=== PATIENT | male | born 2000 | race Caucasian/White ===

== ENCOUNTER 2022-07-24 11:58 | Emergency (ER) | payer OTHER, SELFPAY ==
[2022-07-24 12:10] VITALS: BP 135/74; PULSE 84; RESP 16; TEMP 36.9; O2SAT 100
[2022-07-24 12:17] VITALS: BP 135/74; PULSE 84; RESP 16; TEMP 36.9; O2SAT 100
--- NOTE | 2022-07-24 12:26 | ED.URI ---
HPI - URI/Sore Throat General Chief Complaint: Upper Respiratory Infection Stated Complaint: Sore Throat/Dizziness Time Seen by Provider: 07/24/22 12:26 Source: patient and RN notes reviewed History of Present Illness HPI Narrative: Patient is a 22-year-old male who presents to urgent care with complaints of sinus congestion and pressure. Patient states it has been ongoing for months that he has been taking Zyrtec, NyQuil and Advil. Patient denies any fevers, nausea or vomiting. Does report headache for the last 2 days and a lot of sinus drainage. Patient took a negative COVID test at home. No other acute complaints. No acute distress noted. Patient aware of the plan of care. Some parts of this dictation were generated by voice recognition software and may contain typographical and/or grammatical inaccuracies. Related Data Allergies Allergy/AdvReac Type Severity Reaction Status Date / Time amoxicillin Allergy Unknown Rash Verified 07/24/22 12:09 Review of Systems Review of Systems: CONSTITUTIONAL: Denies fever, chills, or sweats. EYES: Denies visual changes, redness, or discharge. ENT: Reports rhinorrhea, congestion, postnasal drainage and mild sore throat CARDIOVASCULAR: Denies chest pain, palpitations, or edema. RESPIRATORY: Denies cough or dyspnea. GASTROINTESTINAL: Denies abdominal pain, nausea, vomiting, or diarrhea. GENITOURINARY: Denies dysuria or hematuria. SKIN: Denies rash or itching. MUSCULOSKELETAL: Denies back pain, joint pain, or myalgia. NEUROLOGIC: Reports of headache All other systems reviewed are negative, except as documented in HPI. PMFSH Comments At the time of my signature, I reviewed and agree with the nursing past medical, surgical, social, and family history. There is no relevant family history pertinent to the patient complaint. Exam Narrative: GENERAL: This is a well-nourished, well-developed patient, in no apparent distress. HEAD: normocephalic, atraumatic. EYES: PERRL. Sclera clear/white. Vision is grossly intact. EARS: External ears normal, auditory canals clear and without drainage, mild bilateral eustachian tube dysfunction. TMs normal without perforation. Hearing grossly intact. NOSE: External nose normal with no obvious nasal discharge, nares without redness, copious clear rhinorrhea. THROAT: Mucous membranes moist, posterior pharynx clear. Moderate postnasal drainage NECK: Neck supple, non-tender without lymphadenopathy, masses or thyromegaly. CARDIOVASCULAR: Regular rate and rhythm without murmurs, gallops, or rubs. RESPIRATORY: Clear to auscultation. Breath sounds equal bilaterally. No wheezes, rales, or rhonchi. SKIN: warm, intact with no suspicious lesions or rash, good texture and turgor. NEURO: awake, alert, and oriented to person, place and time. There were no obvious focal neurologic abnormalities. EXTREMITIES: No clubbing, cyanosis, or edema. Course Course Level of Care: Express Care Visit Vital Signs Vital signs: Vital Signs Temperature 98.5 F 07/24/22 12:10 Pulse Rate 84 07/24/22 12:10 Respiratory Rate 16 07/24/22 12:10 Blood Pressure 135/74 07/24/22 12:10 Pulse Oximetry 100 07/24/22 12:10 Oxygen Delivery Room Air 07/24/22 12:10 Temperature 98.5 F 07/24/22 12:17 Pulse Rate 84 07/24/22 12:17 Respiratory Rate 16 07/24/22 12:17 Blood Pressure 135/74 07/24/22 12:17 Pulse Oximetry 100 07/24/22 12:17 Oxygen Delivery Room Air 07/24/22 12:17 Reviewed MDM - URI/Sore Throat MDM Narrative Medical decision making narrative: Advised patient to complete the oral steroid regimen as prescribed. Be sure to eat and drink with the medication. Use Benadryl and Flonase prior to bedtime and would advise continuing her daily Zyrtec. Do not sleep with a fan or the windows open. Follow-up with your PCP within 2-5 days or for worsening symptoms or failure to improve. Patient did not wish to be placed on antibiotic stating that the azithromy
== END 2022-07-24 12:50 | disposition home or self-care (01) ==
PROVIDERS: Emergency Provider Nurse Practitioner Family
DX: J32.9 Chronic sinusitis, unspecified (principal); Z86.14 Personal history of Methicillin resistant Staphylococcus aureus infection
CPT/HCPCS: 99203; G0463